=== PATIENT | female | born 1995 | race African-American/Black ===

== ENCOUNTER 2019-11-03 09:45 | Emergency (ER) | payer MEDICAID, SELFPAY ==
[2019-11-03 09:46] VITALS: BP 133/75; PULSE 89; RESP 17; TEMP 36.4; O2SAT 99; BMI 34.4
[2019-11-03 10:35] LABS: Mucous, Urine 0 SEEN /hpf (<or=2+); Red Blood Cells-Urine 0 SEEN /hpf (0-5); White Blood Cells 0 SEEN /hpf (0-5)
[2019-11-03] MEDS: Acetaminophen 500 MG Tablet 1000 MG PO (10:35)
[2019-11-03 10:42] LABS: Color, Urine Yellow (Yellow); Glucose, Dipstick Normal (Normal); Internal QC Validated? YES +Cl - CLEAR BKGD; Ketone-Dipstick Negative (Negative); Leukocyte Esterase-Dipstick Negative /ul (Negative); Nitrite-Dipstick Negative (Negative); Occult Blood-Urine Negative /ul (Negative); Pregnancy, Urine Negative Negative; Protein-Dipstick Negative (Negative); Specific Gravity, Urine 1.015 (1.002-1.030); Urine Bilirubin Dipstick Negative (Negative); Urine Clarity Sl. Cloudy (Clear); Urine Urobilinogen Normal (Normal)
[2019-11-03 10:48] LABS: Bacteria 1+ /hpf (None Seen); Squamous Epithelial Cells - UA 0-5 SEEN /hpf (5-10)
--- NOTE | 2019-11-03 11:00 | ED.VISSUMM ---
- ER Visit Summary Date of Service: 11/03/19 Chief Complaint: Abdominal pain History of Present Illness: The patient is a [address] Ortiz and Dr. Berry. She reports that she has lower abdominal pain that began approximately 20 minutes ago. This came on suddenly while she was trying to have a bowel movement. States that the cramping pain was 10 of 10 at worst and 5-10 currently. Is worsened by straightening out. Is relieved by sitting. She is had nausea without vomiting. Last bowel was yesterday. However she reports that it was small pellets. Typically she goes daily. Patient denies any dysuria or frequency. She is not currently sexually active. However, she reports that she has had a watery discharge that smells like ammonia for the last week. Physical Examination: Vitals: Stable. Afebrile. General: Well-nourished and well-developed. Head: Normocephalic atraumatic. Neck: Supple, no lymphadenopathy. No JVD. Nontender. Cardiovascular: Regular rate and rhythm. No murmurs. Respiratory: No respiratory distress. Clear to auscultation bilaterally. Abdominal: Soft, mild suprapubic tenderness to palpation, nondistended, normal bowel sounds. No guarding, rebound, or peritoneal signs. : Refused pelvic. Back: Nontender. Extremities: Nontender, no edema. Skin: Normal color, no rash. Neurologic: Alert and oriented ?3. Cranial nerves II through XII are intact. Normal strength and sensation. Psych: Normal affect. Test Results: tensed is negative. UA shows no infection. GC and chlamydia were sent. Emergency Department Course and Treatment: Patient was treated with Tylenol. She is resting comfortably. Treatment Plan: Patient will be treated presumptively for bacterial vaginitis. Instructed to follow-up with her driver/guide in 1 week for another exam. She is given a prescription for magnesium citrate for constipation. Follow-up with her primary care physician in 1 to 2 days if not improving. Return to the emergency department for any worsening symptoms. Disposition: To home in improved and stable condition. Impression: 1. Abdominal pain, acute. 2. Vaginal discharge. This note was generated with [employer] software. It may contain incorrect words, spelling, and punctuation that were not noted in review of the chart prior to signing ED Disposition - Plan for ED Patient: Instructions: ED Abdominal Pain Unkn Cause Fem, ED Vaginosis Bacterial Prescriptions: Magnesium Citrate [Citrate Of Magnesia] 300 ml PO X1 #1 bottle metroNIDAZOLE [Flagyl] 500 mg PO BID #14 tablet Referrals: Angelica Muhammad MD [STAFF PHYSICIAN] - 1 Week Ariana Shaw NP, [employer] [Primary Care Provider] - 1-2 Days if not improving
[2019-11-03 11:45] VITALS: RESP 16
--- NOTE | 2019-11-03 11:45 | ED.RN ---
REVIEWED D/C INSTRUCTIONS, FOLLOW UP CARE, PRESCRIPTIONS, AND S/S THAT WOULD WARRANT A RETURN TO THE ED WITH PT. PT VERBALIZED AN UNDERSTANDING AND DENIES FURTHER QUESTIONS FOR THIS RN. PT SKIN WARM/DRY, RESP EVEN AND UNLABORED, PT A&O X 3, NO DISTRESS NOTED. PT AMBULATED OUT OF ED, GAIT STEADY.
[2019-11-03 12:36] LABS: Chlamydia Trachomatis by PCR Negative (Negative); Neisserai gonorrhoeae by PCR Negative (Negative); Probe Check PASS; Sample Adequacy Control PASS; Specimen Processing Control PASS
== END 2019-11-03 11:47 | disposition home or self-care (01) ==
LOC: ED 10:17
PROVIDERS: Emergency Provider Emergency Medicine; PCP Nurse Practitioner Family
DX: N89.8 Other specified noninflammatory disorders of vagina (principal); R10.30 Lower abdominal pain, unspecified
CPT/HCPCS: 81001; 81025; 87491; 87591; 99283

== ENCOUNTER → 2024-11-09 | Outpatient (CLI) | payer MEDICAID, SELFPAY | END | disposition home or self-care (01) | PROVIDERS: PCP Nurse Practitioner Family; Referring Provider Physician Assistant Surgical; Visit Provider Physician Assistant Surgical | DX: J02.9 Acute pharyngitis, unspecified (principal) | CPT/HCPCS: 87070 ==